=== PATIENT | female | born 1955 | race Caucasian/White ===

== ENCOUNTER 2016-11-04 18:22 | Emergency (ER) | payer BC, OTHER ==
[2016-11-04 18:29] VITALS: BP 112/59
--- NOTE | 2016-11-04 18:59 | UC ---
Throat Pain/Nasal Darvin HPI - HPI Summary HPI Summary: 61 y/o female w c/o cough/ throat pain x 4 days. dry cough, increased with increased talking, awakens in middle of night coughing, relieved with cough drops/ water. No smoking, no asthma, mes- zyrtec, h/o allergies worse in spring. no fever, chills, otherwise feeling well, no abdominal/ chest pains. - History of Current Complaint Hx Obtained From: Patient Onset/Duration: Gradual Onset, Lasting Days Severity: Moderate Cough: Nonproductive <Meghan Rob - Last Filed: 11/04/16 18:46> <Mariama Alonzo - Last Filed: 11/04/16 19:37> - History of Current Complaint Chief Complaint: UCRespiratory Stated Complaint: COUGH Time Seen by Provider: 11/04/16 18:28 - Allergies/Home Medications Allergies/Adverse Reactions: Allergies Allergy/AdvReac Type Severity Reaction Status Date / Time Erythromycin Allergy Severe Rash Verified 11/04/16 18:29 Propoxyphene [From Darvon] Allergy Unknown Verified 11/04/16 18:29 Reaction Details Doxycycline AdvReac Severe Vomiting Verified 11/04/16 18:29 PMH/Surg Hx/FS Hx/Imm Hx Previously Healthy: Yes - Surgical History Surgical History: Yes Surgery Procedure, Year, and Place: THUMB SURGERY AGE 2. 1973 OVARIAN CYSTECTOMY AND APPENDECTOMY. 1989'S- D&C X 4. 2001, BREAST REDUCTION - Social History Alcohol Use: None Alcohol Amount: 2 DRINKS A YEAR Substance Use Type: None Smoking Status (MU): Never Smoked Tobacco - Immunization History Most Recent Influenza Vaccination: current <Meghan Rob - Last Filed: 11/04/16 18:46> Review of Systems Respiratory: Cough - dry cough All Other Systems Reviewed And Are Negative: Yes <Meghan Rob - Last Filed: 11/04/16 18:46> Physical Exam Triage Information Reviewed: Yes Appearance: Well-Appearing, No Pain Distress, Well-Nourished Vital Signs: Initial Vital Signs Temp 98.2 F 11/04/16 18:26 Pulse 72 11/04/16 18:26 Resp 16 11/04/16 18:26 BP 112/59 11/04/16 18:26 Pulse Ox 98 11/04/16 18:26 Vital Signs Reviewed: Yes Eyes: Positive: Conjunctiva Clear ENT: Positive: Pharyngeal erythema - moderate, TM dull - fluid behind TM b/l, L> R, Tonsillar swelling, Tonsillar exudate - b/l, moderate englargement Neck: Positive: Supple, Nontender, Enlarged Nodes @ - submand Respiratory: Positive: Chest non-tender, Lungs clear, Normal breath sounds, No respiratory distress, No accessory muscle use Cardiovascular: Positive: RRR, No Murmur Neurological Exam: Normal <Meghan Rob - Last Filed: 11/04/16 18:46> Vital Signs: Initial Vital Signs Temp 98.2 F 11/04/16 18:26 Pulse 72 11/04/16 18:26 Resp 16 11/04/16 18:26 BP 112/59 11/04/16 18:26 Pulse Ox 98 11/04/16 18:26 <Mariama Alonzo - Last Filed: 11/04/16 19:37> Throat Pain/Nasal Course/Dx - Course Course Of Treatment: Strep negative, likely viral, supportive therapy - Differential Dx/Diagnosis Differential Diagnosis/HQI/PQRI: Influenza, Otitis Media, URI Provider Diagnoses: upper viral illness <Meghan Rob - Last Filed: 11/04/16 18:46> Discharge <Meghan Rob - Last Filed: 11/04/16 18:46> <Mariama Alonzo - Last Filed: 11/04/16 19:37> - Discharge Plan Condition: Good Disposition: HOME Prescriptions: Benzonatate [TESSALON 200 MG CAP] 200 mg PO TID PRN #60 cap PRN Reason: Cough Guaifenesin 200 mg PO QID PRN #30 tab PRN Reason: Cough Patient Education Materials: Acute Cough (ED) Referrals: Gregorio Conti MD [Primary Care Provider] - Additional Instructions: - cough medication as needed - FOllow up with PCP with chest pain, increased shortness of breath, fever. - increase fluids - humidifier by bed at night Attestation Statement User Type: Provider - I was available for consult. This patient was seen by the [facility]. The patient was not presented to, seen by, or examined by me. -Matthew <Mariama Alonzo - Last Filed: 11/04/16 19:37>
== END 2016-11-04 19:09 | disposition home or self-care (01) ==
LOC: UCCORT 18:22
DX: B34.9 Viral infection, unspecified (principal)
CPT/HCPCS: 87651; 99212; G0463

== ENCOUNTER 2016-12-17 17:59 | Emergency (ER) | payer BC ==
[2016-12-17 20:10] VITALS: BP 107/58
--- NOTE | 2016-12-17 20:25 | UC ---
Abdominal Pain Male HPI - History of Current Complaint Chief Complaint: UCGI Stated Complaint: DIARRHEA Time Seen by Provider: 12/17/16 20:24 - Allergies/Home Medications Allergies/Adverse Reactions: Allergies Allergy/AdvReac Type Severity Reaction Status Date / Time Erythromycin Allergy Severe Rash Verified 12/17/16 20:04 Propoxyphene [From Darvon] Allergy Unknown Verified 12/17/16 20:04 Reaction Details Doxycycline AdvReac Severe Vomiting Verified 12/17/16 20:04 Home Medications: Home Medications Loperamide CAP* [Imodium CAP*] 2 tab PO ONCE PRN 12/17/16 [History Confirmed ] PMH/Surg Hx/FS Hx/Imm Hx - Surgical History Surgical History: Yes Surgery Procedure, Year, and Place: THUMB SURGERY AGE 2. 1973 OVARIAN CYSTECTOMY AND APPENDECTOMY. 1989'S- D&C X 4. 2001, BREAST REDUCTION. L knee - Social History Alcohol Use: None Alcohol Amount: 2 DRINKS A YEAR Substance Use Type: None Smoking Status (MU): Never Smoked Tobacco - Immunization History Most Recent Influenza Vaccination: current Physical Exam Vital Signs: Initial Vital Signs Temp 99 F 12/17/16 20:06 Pulse 67 12/17/16 20:06 Resp 16 12/17/16 20:06 BP 107/58 12/17/16 20:06 Pulse Ox 99 12/17/16 20:06
--- NOTE | 2016-12-17 20:38 | UC ---
Abdominal Pain Female HPI - HPI Summary HPI Summary: 61 YO FEMALE WITH THE ONSET OF DIARRHEA 5 DAYS AGO 5-7 EPISODES /DAY UNTIL TODAY (SHE HAS HAD ONLY ONE EPISODE TODAY) NO F/C NO N/V INTERMITTENT CRAMPY ABD PAIN NO UTI SYMPTOMS HAS LOST 2 LBS TOLERATING po WELL NO RECENT TRAVEL NO RECENT ABX (-) COLONOSCOPY ABOUT 8 MOS AGO - History of Current Complaint Chief Complaint: UCGI Stated Complaint: DIARRHEA Time Seen by Provider: 12/17/16 20:24 Hx Obtained From: Patient Onset/Duration: Sudden Onset, Lasting Days Timing: Constant Severity Initially: Moderate Severity Currently: Mild Pain Intensity: 2 Pain Scale Used: 0-10 Numeric Location: Diffuse Radiates: No Character: Cramping Aggravating Factor(s): Food Alleviating Factor(s): Spontaneous Resolution Associated Signs and Symptoms: Positive: Diarrhea Allergies/Adverse Reactions: Allergies Allergy/AdvReac Type Severity Reaction Status Date / Time Erythromycin Allergy Severe Rash Verified 12/17/16 20:04 Propoxyphene [From Darvon] Allergy Unknown Verified 12/17/16 20:04 Reaction Details Doxycycline AdvReac Severe Vomiting Verified 12/17/16 20:04 Home Medications: Home Medications Loperamide CAP* [Imodium CAP*] 2 tab PO ONCE PRN 12/17/16 [History Confirmed ] PMH/Surg Hx/FS Hx/Imm Hx - Surgical History Surgical History: Yes Surgery Procedure, Year, and Place: THUMB SURGERY AGE 2. 1973 OVARIAN CYSTECTOMY AND APPENDECTOMY. 1989'S- D&C X 4. 2001, BREAST REDUCTION. L knee - Family History Known Family History: Negative: Cardiac Disease, Hypertension, Diabetes - Social History Alcohol Use: None Alcohol Amount: 2 DRINKS A YEAR Substance Use Type: None Smoking Status (MU): Never Smoked Tobacco - Immunization History Most Recent Influenza Vaccination: current Review of Systems Constitutional: Negative Skin: Negative Eyes: Negative ENT: Negative Respiratory: Negative Cardiovascular: Negative Gastrointestinal: Abdominal Pain - INTERMITTENT, Diarrhea Genitourinary: Negative Motor: Negative Neurovascular: Negative Musculoskeletal: Negative Neurological: Negative Psychological: Negative Is Patient Immunocompromised?: No All Other Systems Reviewed And Are Negative: Yes Physical Exam Triage Information Reviewed: Yes Appearance: Well-Appearing, No Pain Distress, Well-Nourished Vital Signs: Initial Vital Signs Temp 99 F 12/17/16 20:06 Pulse 67 12/17/16 20:06 Resp 16 12/17/16 20:06 BP 107/58 12/17/16 20:06 Pulse Ox 99 12/17/16 20:06 Vital Signs Reviewed: Yes Eyes: Positive: Conjunctiva Clear ENT: Positive: Hearing grossly normal, Other: - MOIST MUCOUS MEMBRANES. Negative: Nasal congestion, Nasal drainage, Trismus, Muffled/hoarse voice Neck: Positive: Supple, Nontender Respiratory: Positive: Lungs clear, Normal breath sounds, No respiratory distress, No accessory muscle use Cardiovascular: Positive: RRR, No Murmur Abdomen Description: Positive: No Organomegaly, Soft. Negative: Nontender - SLIGHT LUQ TENDERNESS TO DEEP PALPATION, CVA Tenderness (R), CVA Tenderness (L) , Hepatomegaly, McBurney's Point Tenderness, Peritoneal Signs, Pulsatile Mass, Splenomegaly Musculoskeletal: Positive: ROM Intact, No Edema Neurological: Positive: Alert Psychological Exam: Normal Skin Exam: Normal Abd Pain Female Course/Dx - Differential Dx/Diagnosis Provider Diagnoses: ACUTE DIARRHEA Discharge - Discharge Plan Condition: Stable Disposition: HOME Patient Education Materials: Acute Diarrhea (ED) Forms: *Work Release Referrals: Gregorio Conti MD [Primary Care Provider] - 2 Days Additional Instructions: bring in stool for studies RECHECK SUNDAR FOR FEVER/INCREASED PAIN/VOMITING
== END 2016-12-17 20:53 | disposition home or self-care (01) ==
LOC: UCCORT 17:59
DX: R19.7 Diarrhea, unspecified (principal)
CPT/HCPCS: 99211; G0463